=== PATIENT | female | born 2000 | race Two or more races ===

== ENCOUNTER 2023-01-11 08:52 | Emergency (ER) | payer OTHER ==
[~2023-01-11] VITALS: Ht 162.6 cm; Wt 56.7 kg
== END 2023-01-11 14:06 | disposition home or self-care (01) ==
LOC: ER 08:52
DX: O21.9 Vomiting of pregnancy, unspecified (principal); Z3A.01 Less than 8 weeks gestation of pregnancy; Z91.013 Allergy to seafood

== ENCOUNTER 2023-02-21 08:37 | Outpatient (CLI) | payer OTHER | END 2023-02-21 09:37 | disposition home or self-care (01) | LOC: PRENATAL 08:37 | PROVIDERS: ATTEND Obstetrics & Gynecology Maternal & Fetal Medicine | DX: O36.80X0 Pregnancy with inconclusive fetal viability, not applicable or unspecified (principal); Z3A.12 12 weeks gestation of pregnancy ==

== ENCOUNTER 2023-03-06 05:14 | Inpatient (IN) | payer OTHER ==
[~2023-03-06] VITALS: Ht 162.6 cm; Wt 55.8 kg
[2023-03-06] MEDS ORDERED: PRENATABS RX T1 EACH PO (06:02)
== END 2023-03-07 13:26 | disposition home or self-care (01) | DRG 807 ==
LOC: LDR 05:14
PROVIDERS: ADMIT Obstetrics & Gynecology; ATTEND Obstetrics & Gynecology
PROC: 10E0XZZ Delivery of Products of Conception, External Approach (ICD-10-PCS; principal; 2023-03-06)
PROC: 3E033VJ Introduction of Other Hormone into Peripheral Vein, Percutaneous Approach (ICD-10-PCS; 2023-03-06)
PROC: 3E0DXGC Introduction of Other Therapeutic Substance into Mouth and Pharynx, External Approach (ICD-10-PCS; 2023-03-06)
PROC: 3E0P7VZ Introduction of Hormone into Female Reproductive, Via Natural or Artificial Opening (ICD-10-PCS; 2023-03-06)
PROC: 4A1HXCZ Monitoring of Products of Conception, Cardiac Rate, External Approach (ICD-10-PCS; 2023-03-06)
DX: Z33.2 Encounter for elective termination of pregnancy (principal); Z37.1 Single stillbirth; Z20.822 Contact with and (suspected) exposure to COVID-19

== ENCOUNTER 2024-09-05 09:58 | Emergency (ER) | payer OTHER ==
[~2024-09-05] VITALS: Ht 162.6 cm; Wt 58.1 kg
[~2024-09-05 09:58] MED LIST: PRENATABS RX T1 EACH PO
[2024-09-05] MEDS ORDERED: 0.9 % SODIUM CHLORIDE 1,000 ML IV SCH (11:00)
[2024-09-05 11:20] LABS: HEMATOCRIT 28.6 % (36.0-45.00); HEMOGLOBIN 9.2 g/dL (12.0-15.00); MEAN CELL VOLUME 75.9 fL (80.00-100.00); MEAN CORPUSCULAR HEMOGLOBIN 24.4 pg (27.00-32.0); MEAN CORPUSCULAR HGB CONC 32.1 g/dl (32.0-36.0); PLATELET COUNT 286 K/uL (150-450); RED BLOOD COUNT 3.77 M/uL (4.00-6.00); RED CELL DISTRIBUTION WIDTH 16.7 % (11.5-14.5)
== END 2024-09-05 14:18 | disposition home or self-care (01) ==
LOC: ER 09:59
PROVIDERS: Emergency Medicine
DX: O20.8 Other hemorrhage in early pregnancy (principal); Z3A.01 Less than 8 weeks gestation of pregnancy; Z91.013 Allergy to seafood

== ENCOUNTER 2025-01-28 09:55 | Outpatient (CLI) | payer OTHER | END 2025-01-28 09:56 | disposition home or self-care (01) | LOC: PRENATAL 09:55 | PROVIDERS: ATTEND Obstetrics & Gynecology Maternal & Fetal Medicine | DX: Z76.1 Encounter for health supervision and care of foundling (principal) ==